=== PATIENT | female | born 1985 | race Caucasian/White ===

== ENCOUNTER 2017-03-12 17:24 | Emergency (ER) | payer OTHER ==
[~2017-03-12] VITALS: Ht 170.2 cm; Wt 56.7 kg
[~2017-03-12 17:24] MED LIST: ALEVE220 M1 PO; COLACE 100 MG100 MG PO; FISH OIL 1,001000 M2 PO; IBUPROFEN 600600 M1 PO; MAGOX 400400 MG PO; NOHOMEMEDICATIONS; NORCO 5-325 TA1 EACH PO; TRINATE TABLET1 TAB PO; TUCKS MEDICATE1 EAC1
[2017-03-12] MEDS ORDERED: ZOFRAN ODT4 MG PO (17:48)
[2017-03-12 18:15] LABS: HEMATOCRIT 44.7 % (37.0-47.0); HEMOGLOBIN 15.1 gm/dL (12.0-15.0); MCHC 33.7 g/dL (28.0-37.0); MCV 91.8 fL (80.0-100.0); RBC 4.87 mil/uL (4.20-5.00); RDW 13.4 % (10.5-14.5)
[2017-03-12 18:19] LABS: CREATININE 0.6 mg/dL (0.6-1.0); POTASSIUM 3.7 mmol/L (3.5-5.1)
[2017-03-12 19:15] VITALS: BP 98/62
== END 2017-03-12 19:18 | disposition home or self-care (01) ==
LOC: ER 17:24
PROVIDERS: Emergency Medicine
DX: R51 Headache (principal)